=== PATIENT | male | born 1940 | race Caucasian/White ===

== ENCOUNTER 2016-05-26 17:32 | Emergency (ER) | payer MEDICARE ==
[~2016-05-26] VITALS: Ht 175.3 cm; Wt 83.5 kg
[~2016-05-26 17:32] MED LIST: AMLO10 PO; ASPI-110 PO; ATOR40TA16 PO; CALC667C PO; GLIM1TAB PO; HYDR50TA15 PO; LOSA100T PO; METO-338 PO; PANT40TA3 PO; TAMS0.4C4 PO
[2016-05-26 17:35] VITALS: BP 179/80; PULSE 107; RESP 24; TEMP 97.3; O2SAT 99
--- NOTE | 2016-05-26 18:15 | PD ---
Physical Exam Date Seen by Provider: May 26, 2016 Time Seen by Provider: 18:11 Narrative BGL 147 PRIOR TO ARRIVAL 75 YOWM ESRD HEMO DIALYSIS. HAD SHAKING EPISODE DURING AND AFTER DIAYALSIS. NO COLD SYMPTOMS. NO CP/SOB. DEVELOPING HOARSE VOICE VSS. AWAITING BED PLACEMENT Data Data Last Documented VS Vital Signs Date Time Temp Pulse Resp B/P Pulse Ox O2 Delivery O2 Flow Rate FiO2 05/26/16 17:35 97.3 107 24 179/80 99 Room Air [facility] Medical Record Reviewed: Yes Supervised Visit with CHEPE: Yes Jalen Dozier May 26, 2016 18:15
== END 2016-05-26 19:45 | disposition left against medical advice (07) ==
LOC: NED 17:32
DX: R53.1 Weakness (principal)
CPT/HCPCS: 99282

== ENCOUNTER 2016-07-05 10:29 | Emergency (ER) | payer MEDICARE ==
[~2016-07-05] VITALS: Ht 175.3 cm; Wt 85.4 kg
[2016-07-05 10:51] VITALS: BP 131/68; PULSE 64; RESP 16; TEMP 97.8; O2SAT 100
[2016-07-05] MEDS ORDERED: CIPR-9 PO ×2 (11:23→11:47)
[2016-07-05] MEDS ORDERED: CORT1SOL EACH EAR ×2 (11:23→11:47)
[2016-07-05] MEDS ORDERED: NORC5TAB PO ×2 (11:23→11:47)
--- NOTE | 2016-07-05 11:24 | PD ---
HPI . Ear pain, left worse than right Chief Complaint: ENT Complaint Time Seen by Provider: 11:13 Travel History International Travel<30 days: No Contact w/Intl Traveler<30days: No Traveled to known affect area: No History of Present Illness HPI Patient presents with a 2 week history of bilateral ear pain. One is much worse than the right. He is from [place]. His doctor in [place] suggested the use of Debrox. He has been using the Debrox without relief. He describes an achy pain which she rates as 10/10. Patient reports no obvious exacerbating factors. He has not been running a fever. He reports no drainage from the ear. Pertinent history is that he is diabetic and he is on dialysis. PFSH Past Medical History Hx Anticoagulant Therapy: Yes (asac 81mg) Arthritis: No Asthma: No Autoimmune Disease: No Blood Disorders: No Anxiety: No Depression: No Heart Rhythm Problems: No Cardiovascular Problems: Yes (htn on meds, has 2 heart stents) High Cholesterol: No Chemotherapy: No Chest Pain: No Congestive Heart Failure: No COPD: No Cerebrovascular Accident: No Diabetes: Yes (type 2) Diminished Hearing: No Endocrine: No GERD: No Genitourinary: Yes Hiatal Hernia: No Hypertension: Yes Immune Disorder: No Kidney Stones: Yes Musculoskeletal: No Neurologic: No Psychiatric: No Reproductive: No Respiratory: No Migraines: No Myocardial Infarction: No Renal Failure: Yes Seizures: No Sickle Cell Disease: No Sleep Apnea: No Thyroid Disease: No Ulcer: No Past Surgical History Abdominal Surgery: No Arteriovenous Shunt: No Cardiac Surgery: Yes (2 heart stents) Ear Surgery: No Endocrine Surgery: No Eye Surgery: No Genitourinary Surgery: No Gynecologic Surgery: No Insulin Pump: No Joint Replacement: No Oral Surgery: No Pacemaker: No Thoracic Surgery: No Other Surgery: No Social History Alcohol Use: Yes (OCASSIONAL) Tobacco Use: No Substance Use: No Allergies-Medications (Allergen,Severity, Reaction): Coded Allergies: Motrin (Verified Allergy, Severe, 07/05/16) KIDNEY FAILURE Procardia (Verified Allergy, Severe, 07/05/16) Reported Meds & Prescriptions Reported Meds & Active Scripts Active Hydralazine (Hydralazine HCl) 50 Mg Tab 50 Mg PO Q6H Lopressor (Metoprolol Tartrate) 100 Mg Tab 100 Mg PO Q12HR Calcium Acetate (Calcium Acetate (Phosphate Bin) 667 Mg Cap 667 Mg PO TID Norvasc (Amlodipine Besylate) 10 Mg Tab 10 Mg PO DAILY Reported Losartan (Losartan Potassium) 100 Mg Tab 100 Mg PO DAILY Tamsulosin (Tamsulosin HCl) 0.4 Mg Cap 0.4 Mg PO DAILY Pantoprazole (Pantoprazole Sodium) 40 Mg Tab 40 Mg PO BID Glimepiride 1 Mg Tab 0.5 Mg PO DAILY Take with breakfast or first main meal Atorvastatin (Atorvastatin Calcium) 40 Mg Tab 40 Mg PO DAILY Aspirin 81 (Aspirin) 81 Mg Tabdr 81 Mg PO HS Review of Systems Except as stated in HPI: all other systems reviewed are Neg General / Constitutional: No: Fever HENT: Positive: Earache, Other (ear swelling), No: Ear Discharge Physical Exam Narrative GENERAL: Awake and alert and in no acute distress. SKIN: Warm and dry. HEAD: Atraumatic. Normocephalic. Left EAC is edematous. There is no drainage noted. The left auricle is swollen and tender. Right EAC looks normal as does the right TM. No mastoid tenderness. EYES: Pupils equal and round. NECK: Trachea midline. No cervical lymphadenopathy palpated. CARDIOVASCULAR: Regular rate and rhythm. RESPIRATORY: No accessory muscle use. MUSCULOSKELETAL: No obvious deformities. No edema. NEUROLOGICAL: Awake and alert. No obvious cranial nerve deficits. Motor grossly within normal limits. Normal speech. PSYCHIATRIC: Appropriate mood and affect; insight and judgment normal. Data Data Last Documented VS Vital Signs Date Time Temp Pulse Resp B/P Pulse Ox O2 Delivery O2 Flow Rate FiO2 07/05/16 10:51 97.8 64 16 131/68 100 MDM Medical Decision Making Medical Screen Exam Complete: Yes Emergency Medical Condition: Yes Differential Diagnosis Differential diagnosis of ear pain includes eustachian tube dysfunction, otitis externa, otitis media, TMJ syndrome Narrative Course This is a patient with diabetes on dialysis who presents with a history and affect seem compatible with otitis externa. No evidence of mastoiditis. Because of his immunocompromised state, he will be treated with both cortisporin otic suspension and oral Cipro. Diagnosis Primary Impression: Otitis externa Qualified Code: H60.503 - Acute otitis externa of both ears, unspecified type Med/Other Pt SpecificInfo: Prescription(s) given Scripts Hydrocodone-Acetaminophen (Blackey)5-325 mg Tab1 Tab PO Q4H PRN (PAIN) #12 TAB Ref 0 Prov:Bailey Frederick MD 07/05/16 Ciprofloxacin (Cipro)500 Mg Oue650 Mg PO BID 10 Days Ref 0 Prov:Bailey Frederick MD 07/05/16 Mzczyqfc-Yixeqstqs-KE Otic Drops (Cortisporin HC Otic Drops)3.5-10,000-1 Mg- Units-% Soln4 Drop EACH EAR QID 10 Days Ref 0 Prov:Bailey Frederick MD 07/05/16 Disposition: 01 DISCHARGE HOME Condition: Stable Bailey Frederick MD July 05, 2016 11:24
[2016-07-05] MEDS ORDERED: CLAR10CA3 PO (11:37)
[2016-07-05] MEDS ORDERED: DIALCAP PO (11:37)
[2016-07-05] MEDS ORDERED: FISHCAP4 PO (11:37)
[2016-07-05] MEDS ORDERED: FURO80TA PO (11:37)
== END 2016-07-05 12:00 | disposition home or self-care (01) ==
LOC: PHEFT 10:29
DX: H60.503 Unspecified acute noninfective otitis externa, bilateral (principal); N18.6 End stage renal disease; I12.0 Hypertensive chronic kidney disease with stage 5 chronic kidney disease or end stage renal disease; E11.22 Type 2 diabetes mellitus with diabetic chronic kidney disease; Z79.84 Long term (current) use of oral hypoglycemic drugs; Z99.2 Dependence on renal dialysis; Z79.82 Long term (current) use of aspirin; Z95.5 Presence of coronary angioplasty implant and graft
CPT/HCPCS: 99282

== ENCOUNTER 2017-04-08 18:43 | Emergency (ER) | payer MEDICARE ==
[~2017-04-08] VITALS: Ht 175.3 cm; Wt 90.1 kg
[~2017-04-08 18:43] MED LIST changes: -ASPI-110 PO; +ASPI1TAB57 PO; +CIPR-9 PO; +CLAR10CA3 PO; +CORT1SOL EACH EAR; +DIALCAP PO; +FISHCAP4 PO; +FURO80TA PO; -HYDR50TA15 PO; -LOSA100T PO; +NORC5TAB PO
[2017-04-08 19:14] VITALS: BP 134/60; PULSE 67; RESP 20; TEMP 98.4; O2SAT 100
--- NOTE | 2017-04-08 19:35 | PD ---
HPI Chief Complaint: ENT Complaint Time Seen by Provider: 19:21 Travel History International Travel<30 days: No Contact w/Intl Traveler<30days: No Traveled to known affect area: No History of Present Illness HPI 76-year-old male presents to the emergency room for evaluation of sore throat that started yesterday. Patient states symptoms are mild yesterday and significantly worsened today. He has no associated fever, chills, nausea, vomiting, cough, congestion, or ear pain. States he is concerned about strep throat because he is having out-of-town company including children come to his house tomorrow. He has not taken anything for symptoms. Pain is severe, worse when he swallows. Normal pain when he is not swallowing. PFSH Past Medical History Hx Anticoagulant Therapy: Yes (asac 81mg) Arthritis: No Asthma: No Autoimmune Disease: No Blood Disorders: No Anxiety: No Depression: No Heart Rhythm Problems: No Cardiovascular Problems: Yes (htn on meds, has 2 heart stents) High Cholesterol: No Chemotherapy: No Chest Pain: No Congestive Heart Failure: No COPD: No Cerebrovascular Accident: No Diabetes: Yes (type 2) Diminished Hearing: No Endocrine: No GERD: No Genitourinary: Yes Hiatal Hernia: No Hypertension: Yes Immune Disorder: No Kidney Stones: Yes Musculoskeletal: No Neurologic: No Psychiatric: No Reproductive: No Respiratory: No Migraines: No Myocardial Infarction: No Renal Failure: Yes Seizures: No Sickle Cell Disease: No Sleep Apnea: No Thyroid Disease: No Ulcer: No Past Surgical History Abdominal Surgery: No Arteriovenous Shunt: No Cardiac Surgery: Yes (2 heart stents) Ear Surgery: No Endocrine Surgery: No Eye Surgery: No Genitourinary Surgery: No Gynecologic Surgery: No Insulin Pump: No Joint Replacement: No Oral Surgery: No Pacemaker: No Thoracic Surgery: No Other Surgery: No Social History Alcohol Use: Yes (OCASSIONAL) Tobacco Use: No Substance Use: No Allergies-Medications (Allergen,Severity, Reaction): Coded Allergies: ibuprofen (Unverified Allergy, Severe, 04/08/17) KIDNEY FAILURE nifedipine (Unverified Allergy, Severe, 04/08/17) Reported Meds & Prescriptions Reported Meds & Active Scripts Active Calcium Acetate (Calcium Acetate (Phosphate Bin) 667 Mg Cap 667 Mg PO TID Norvasc (Amlodipine Besylate) 10 Mg Tab 10 Mg PO DAILY Reported Folic Acid 0.8 Mg Tab 800 Mcg PO DAILY Furosemide 80 Mg Tab 80 Mg PO DAILY Fish Oil + D3 (Fish Oil-Cholecalciferol) 1,200-1,000 Mg-Unit Cap 1,000 Cap PO DAILY Tamsulosin (Tamsulosin HCl) 0.4 Mg Cap 0.4 Mg PO DAILY Pantoprazole (Pantoprazole Sodium) 40 Mg Tab 40 Mg PO BID Atorvastatin (Atorvastatin Calcium) 40 Mg Tab 40 Mg PO DAILY Aspirin 81 (Aspirin) 81 Mg Tabdr 81 Mg PO HS Review of Systems Except as stated in HPI: all other systems reviewed are Neg Physical Exam Narrative GENERAL: Well-nourished, well-developed male in no acute distress. Afebrile. Ambulatory. SKIN: Focused skin assessment warm/dry. HEAD: Normocephalic. EYES: No scleral icterus. No injection or drainage. ENT: Mucosa pink and moist. Very mild erythema without exudates. No uvular edema. No uvular, palatal, or tonsillar deviation. Airway patent. Nasal turbinates appear normal without nasal blood, purulent drainage or septal hematoma. EARS: Bilateral pinnae and external canals appear within normal limits. Bilateral tympanic membranes without erythema, dullness or perforation. NECK: Supple, trachea midline. No JVD or lymphadenopathy. CARDIOVASCULAR: Regular rate and rhythm without murmurs, gallops, or rubs. RESPIRATORY: Breath sounds equal bilaterally. No accessory muscle use. Data Data Last Documented VS Vital Signs Date Time Temp Pulse Resp B/P (MAP) Pulse Ox O2 Delivery O2 Flow Rate FiO2 04/08/17 19:14 98.4 67 20 134/60 (84) 100 Orders Orders Group A Rapid Strep Screen (04/08/17 19:28) Strep Culture (Group A) (04/08/17 19:30) [facility] Medical Decision Making Medical Screen Exam Complete: Yes Emergency Medical Condition: Yes Medical Record Reviewed: Yes Differential Diagnosis Strep, viral pharyngitis, URI, pneumonia, influenza Narrative Course 76-year-old male presents to the emergency room for evaluation of sore throat that started yesterday and worsened today. No associated symptoms. No fevers. Pain is severe with swallowing. Patient is afebrile and well-appearing in the emergency room. Vital signs stable. There is mild erythema of the pharynx. No exudates. Rapid strep is negative. This is viral pharyngitis. Patient was informed it may be the beginning of a viral upper respiratory infection. He was told to continue [id number] medications for pain and follow-up with his primary care physician or return for worsening symptoms. He understands and agrees to plan. Diagnosis Primary Impression: Viral pharyngitis Referrals: Primary Care Physician Additional Instructions: Rest and drink plenty of fluids. This may be the beginning of an upper respiratory infection. If you develop cough, congestion, or fever follow-up with a primary care physician. Magic mouthwash as directed, as needed for pain. Return to the emergency room for worsening symptoms. Med/Other Pt SpecificInfo: Prescription(s) given Scripts Srjaodqlixymjka-Kolzwpgjs-Aph-Alum-Simeth Liq (Magic Mouthwash Pediatric/Adult Liq) 60 Ml Susp 5 ML SWISH-SWAL ACHS for Mouth sores, #60 ML 0 Refills Each 5mL contains: Diphenydramine 4.5mg, Viscous Lidocaine 2% 10mg, Maalox Advanced Regular Strength 2.7ml Prov: Shira Yo MD 04/08/17 Disposition: 01 DISCHARGE HOME Condition: Stable Jackie Mcclain Apr 08, 2017 19:35
[2017-04-08] MEDS ORDERED: FOLI800T PO (19:38)
[2017-04-08] MEDS ORDERED: MAGICPED SWISH-SWAL (19:53)
== END 2017-04-08 20:23 | disposition home or self-care (01) ==
LOC: PHEFT 18:43
DX: J02.0 Streptococcal pharyngitis (principal); I10 Essential (primary) hypertension; E11.9 Type 2 diabetes mellitus without complications; Z95.5 Presence of coronary angioplasty implant and graft; Z79.01 Long term (current) use of anticoagulants
CPT/HCPCS: 87081; 87880; 99283